=== PATIENT | female | born 1940 | race Caucasian/White ===

== ENCOUNTER → 2018-05-04 | Outpatient (CLI) | payer MEDICARE, OTHER ==
[~2018-05-04] MED LIST: AMIO200T PO; CELE200C PO; METO200T47 PO; METO25TA91 PO; Miscellaneous XX; SIMV20TA3 PO; WARF7.5T PO; ZOLP-413 PO
== END | disposition home or self-care (01) ==
LOC: CFH 14:21
DX: N95.9 Unspecified menopausal and perimenopausal disorder (principal); I25.10 Atherosclerotic heart disease of native coronary artery without angina pectoris; Z78.0 Asymptomatic menopausal state; Z87.891 Personal history of nicotine dependence
CPT/HCPCS: 77080; G0297

== ENCOUNTER → 2018-05-23 | Outpatient (CLI) | payer MEDICARE, OTHER ==
[~2018-05-23] MED LIST changes: +ATOR20TA37 PO; +DIGO125T PO; +LEVO50TA5 PO
[2018-05-23 11:48] LABS: MICROSCOPIC AUTO
[2018-05-23 11:49] LABS: BASOPHILS # (AUTO) 0.03 x10^3/uL (0-0.1); BASOPHILS % (AUTO) 1 % (0-1); EOSINOPHILS # (AUTO) 0.03 x10^3/uL (0-0.4); EOSINOPHILS % (AUTO) 1 % (1-7); LYMPHOCYTES # (AUTO) 1.59 x10^3/uL (1-3.4); LYMPHOCYTES % (AUTO) 30 % (22-44); MD NO; MEAN CORPUSCULAR HEMOGLOBIN 32.2 pg (27.0-34.8); MEAN CORPUSCULAR HGB CONC 33.9 g/dL (32.4-35.8); MEAN PLATELET VOLUME 7.6 fL (7.4-10.4); MONOCYTES # (AUTO) 0.71 x10^3/uL (0.2-0.8); MONOCYTES % (AUTO) 13 % (2-9); NEUTROPHILS # (AUTO) 3.01 x10^3/uL (1.8-6.8); NEUTROPHILS % (AUTO) 56 % (42-75); PLATELET COUNT 217 x10^3/uL (130-400); RED BLOOD COUNT 4.75 x10^6/uL (3.82-5.3)
[2018-05-23 11:56] LABS: INTERNATIONAL NORMALIZED RATIO 2.6 (0.93-1.1); PROTHROMBIN TIME 26.6 Seconds (9.6-11.5)
[2018-05-23 11:57] LABS: CULTURE INDICATED? YES
[2018-05-23 11:59] LABS: ALBUMIN 3.8 g/dL (3.4-5.0); ANION GAP 4 mmol/L (5-15); CALCIUM 9.7 mg/dL (8.5-10.1); CHLORIDE 109 mmol/L (98-107)
[2018-05-23 12:03] LABS: ALANINE AMINOTRANSFERASE 30 U/L (12-78); ALKALINE PHOSPHATASE 69 U/L (45-117); BILIRUBIN,TOTAL 1.4 mg/dL (0.2-1.0); CREATININE 1.03 mg/dL (0.55-1.02); TOTAL PROTEIN 6.9 g/dL (6.4-8.2)
== END | disposition home or self-care (01) ==
LOC: STAR 10:40
PROVIDERS: ATTEND Orthopaedic Surgery
DX: Z01.818 Encounter for other preprocedural examination (principal); M17.12 Unilateral primary osteoarthritis, left knee; I48.91 Unspecified atrial fibrillation
CPT/HCPCS: 36415; 80053; 81001; 85025; 85610; 85730; 87081; 87086; 93005

== ENCOUNTER 2018-06-27 09:53 | Inpatient (IN) | payer MEDICARE, OTHER ==
[~2018-06-27] VITALS: Ht 170.2 cm; Wt 84.8 kg
[2018-06-27] MEDS ORDERED: LACTATED RINGERS 1,000 ML IV SCH (10:49)
[2018-06-27 10:50] VITALS: BP 121/90
[2018-06-27] MEDS ORDERED: PLEASE ENTER HEIGHT AND WEIGHT MC SCH (11:00)
[2018-06-27] MEDS ORDERED: ONDANSETRON ODT 8 MG PO ONE (11:00)
[2018-06-27] MEDS ORDERED: GABAPENTIN 300 MG CAPSULE PO ONE (11:00)
[2018-06-27] MEDS ORDERED: ACETAMINOPHEN 500 MG TABLET PO ONE (11:00)
[2018-06-27 11:42] LABS: INTERNATIONAL NORMALIZED RATIO 1.08 (0.93-1.1); PROTHROMBIN TIME 11.3 Seconds (9.6-11.5)
[2018-06-27] MEDS ORDERED: TRANEXAMIC ACID 100 MG/ML, 10ML ONE (12:21)
[2018-06-27] MEDS ORDERED: KETOROLAC 60 MG/2 ML ONE (12:21)
[2018-06-27] MEDS ORDERED: EPINEPHRINE 1 MG/ML, 1ML ONE (12:22)
[2018-06-27] MEDS ORDERED: ROPIvacaine/PF 0.2%, 20 ML ONE (12:22)
[2018-06-27] MEDS ORDERED: SODIUM CHLORIDE 0.9% 100 ML ONE (12:22)
[2018-06-27] MEDS ORDERED: METOCLOPRAMIDE 5 MG/ML, 2ML IV PRN (12:30)
[2018-06-27] MEDS ORDERED: MORPHINE SULFATE 4 MG/ML, 1ML IVPush PRN (12:30)
[2018-06-27] MEDS ORDERED: MEPERIDINE/PF 25MG/0.5ML IVPush PRN (12:30)
[2018-06-27] MEDS ORDERED: OXYcodone 5 MG/5 ML ORAL.SOL UDC PO PRN (12:30)
[2018-06-27] MEDS ORDERED: LORazepam 2 MG/ML, 1ML IVPush PRN (12:30)
[2018-06-27] MEDS ORDERED: hydrALAzine 20 MG/ML, 1ML IV PRN (12:30)
[2018-06-27] MEDS ORDERED: LABETALOL 5MG/ML, 20ML IV PRN (12:30)
[2018-06-27] MEDS ORDERED: DEXAMETHASONE 4 MG/ML, 5ML ONE (12:40)
[2018-06-27] MEDS ORDERED: ONDANSETRON 2MG/ML, 2ML ONE (12:40)
[2018-06-27] MEDS ORDERED: CEFAZOLIN 1,000 MG ONE (12:40)
[2018-06-27] MEDS ORDERED: ZOLPIDEM 5MG TABLET PO PRN (13:00)
[2018-06-27] MEDS ORDERED: HYDROmorphone 1 MG/ML, 1ML IV PRN (13:00)
[2018-06-27] MEDS ORDERED: PROMETHAZINE 12.5 MG SUPP PR PRN (13:00)
[2018-06-27] MEDS ORDERED: MAGNESIUM HYDROXIDE 8%, 30ML UDC PO PRN (13:00)
[2018-06-27] MEDS ORDERED: ALUMINUM/MAG/SIMETHICONE 30 ML UDC PO PRN (13:00)
[2018-06-27] MEDS ORDERED: PROMETHAZINE 25 MG/ML, 1ML IM PRN (13:00)
[2018-06-27] MEDS ORDERED: BISACODYL 10 MG SUPP PR PRN (13:00)
[2018-06-27] MEDS ORDERED: DIPHENHYDRAMINE 50 MG CAPSULE PO PRN (13:00)
[2018-06-27] MEDS ORDERED: DIAZEPAM 5 MG TABLET PO PRN (13:00)
[2018-06-27] MEDS ORDERED: ONDANSETRON 4 MG TABLET PO PRN (13:00)
[2018-06-27] MEDS ORDERED: ONDANSETRON 2MG/ML, 2ML IV PRN (13:00)
[2018-06-27] MEDS ORDERED: ACETAMINOPHEN 650 MG/20.3 ML UDC PO SCH (13:00)
[2018-06-27] MEDS ORDERED: MIDAZOLAM 1 MG/ML, 2ML ONE (13:07)
[2018-06-27] MEDS ORDERED: FENTANYL PF 100 MCG/2ML ONE ×2 (13:07→14:07)
[2018-06-27] MEDS ORDERED: PROPOFOL 10 MG/ML, 20ML ONE (13:08)
[2018-06-27] MEDS ORDERED: SUCCINYLCHOLINE 20 MG/ML, 10ML ONE (13:09)
[2018-06-27] MEDS ORDERED: LIDOCAINE-MPF 2% ,5ML ONE (13:09)
[2018-06-27] MEDS ORDERED: TRANEXAMIC ACID 1,000 MG in SODIUM CHLORIDE 0.9% 100 ML IVPB ONE (14:00)
[2018-06-27] MEDS ORDERED: HYDROmorphone 1 MG/ML, 1ML ONE (14:07)
[2018-06-27] MEDS ORDERED: OXYcodone 5 MG/5 ML ORAL.SOL UDC ONE (14:08)
[2018-06-27] MEDS: HYDROmorphone 2 MG/ML, 1ML IVPush PRN ×2 (14:08→14:22)
[2018-06-27] MEDS: FENTANYL PF 100 MCG/2ML IV PRN ×2 (14:14→14:23)
[2018-06-27] MEDS: ACETAMINOPHEN 500 MG TABLET PO SCH ×3 (18:12→23:35)
[2018-06-27] MEDS: D5%-0.45% NACL 1,000 ML IV SCH (18:14)
[2018-06-27 20:06] VITALS: BP 108/57
[2018-06-27] MEDS: DIGOXIN 0.125 MG TABLET PO SCH (20:35)
[2018-06-27] MEDS: WARFARIN 3 MG TABLET PO-COUM SCH (20:36)
[2018-06-27] MEDS: CEFAZOLIN PMX 2GM/50ML 50 ML IVPB SCH (20:37)
[2018-06-27] MEDS: DOCUSATE 100 MG CAPSULE PO SCH (20:37)
[2018-06-27] MEDS: ATORVASTATIN 20 MG TABLET PO SCH (20:38)
[2018-06-27] MEDS: METOPROLOL SUCCINATE 25 MG TAB.ER.24H PO SCH (20:42)
[2018-06-28 00:10] VITALS: BP 106/65
[2018-06-28] MEDS: D5%-0.45% NACL 1,000 ML IV SCH ×3 (02:00→18:00)
[2018-06-28] MEDS: OXYcodone IR 5MG TABLET PO PRN ×2 (02:43→18:18)
[2018-06-28] MEDS: CEFAZOLIN PMX 2GM/50ML 50 ML IVPB SCH (04:02)
[2018-06-28 04:04] VITALS: BP 98/65
[2018-06-28] MEDS: ACETAMINOPHEN 500 MG TABLET PO SCH ×3 (05:24→17:34)
[2018-06-28] MEDS ORDERED: ENOXAPARIN 40 MG/0.4 ML SQ SCH (06:00)
[2018-06-28] MEDS ORDERED: DEXAMETHASONE 4 MG/ML, 1ML IVPush SCH (06:00)
[2018-06-28 08:45] VITALS: BP 110/73
[2018-06-28] MEDS ORDERED: OMNIPAQUE 350 MG/ML, 150 ML BOTTLE ONE (08:46)
[2018-06-28] MEDS ORDERED: DIGOXIN 0.125 MG TABLET PO SCH (09:00)
[2018-06-28] MEDS ORDERED: WARFARIN 3 MG TABLET PO-COUM SCH (09:00)
[2018-06-28] MEDS ORDERED: PAPAVERINE 30 MG/ML, 2ML ONE (10:03)
[2018-06-28] MEDS ORDERED: HEPARIN 1,000 UNITS/ML, 30ML ONE (10:03)
[2018-06-28] MEDS ORDERED: THROMBIN 20,000 UNIT VIAL TP ONE (10:03)
[2018-06-28] MEDS ORDERED: BACITRACIN 50,000 UNIT ONE (10:04)
[2018-06-28] MEDS ORDERED: MEPERIDINE/PF 25MG/0.5ML IVPush PRN (11:00)
[2018-06-28] MEDS ORDERED: OXYcodone 5 MG/5 ML ORAL.SOL UDC PO PRN (11:00)
[2018-06-28] MEDS ORDERED: ONDANSETRON 2MG/ML, 2ML IV PRN (11:00)
[2018-06-28] MEDS ORDERED: HYDROmorphone 2 MG/ML, 1ML IVPush PRN (11:00)
[2018-06-28] MEDS ORDERED: PAPAVERINE 30 MG/ML, 2ML IVPush ONE (12:38)
[2018-06-28] MEDS ORDERED: KETOROLAC 30 MG/1 ML IV SCH (13:00)
[2018-06-28] MEDS ORDERED: FENTANYL PF 100 MCG/2ML ONE (14:00)
[2018-06-28] MEDS: FENTANYL PF 100 MCG/2ML IV PRN ×3 (14:00→14:30)
[2018-06-28] MEDS ORDERED: OXYcodone 5 MG/5 ML ORAL.SOL UDC ONE (14:00)
[2018-06-28 15:10] VITALS: BP 107/62
[2018-06-28] MEDS ORDERED: LEVOTHYROXINE 25 MCG TABLET ONE (15:31)
[2018-06-28] MEDS: METOPROLOL SUCCINATE 25 MG TAB.ER.24H PO SCH ×2 (15:50→21:00)
[2018-06-28] MEDS: WARFARIN 3 MG TABLET PO-COUM SCH (15:52)
[2018-06-28] MEDS: DOCUSATE 100 MG CAPSULE PO SCH ×2 (15:52→20:43)
[2018-06-28] MEDS: MULTIVITAMINS/MINERALS TABLET PO SCH (15:53)
[2018-06-28] MEDS: LEVOTHYROXINE 50 MCG TABLET PO SCH (15:53)
[2018-06-28] MEDS ORDERED: HEPARIN 5,000 UNITS/ML, 1ML IV PRN (16:00)
[2018-06-28] MEDS ORDERED: HEPARIN 5,000 UNITS/ML, 1ML IV ONE (16:00)
[2018-06-28] MEDS: DIGOXIN 0.125 MG TABLET PO SCH (17:34)
[2018-06-28] MEDS: ATORVASTATIN 20 MG TABLET PO SCH (20:43)
[2018-06-28 21:03] VITALS: BP 100/62
[2018-06-29 00:15] VITALS: BP 103/74
[2018-06-29] MEDS: ACETAMINOPHEN 500 MG TABLET PO SCH ×4 (00:45→17:29)
[2018-06-29] MEDS: D5%-0.45% NACL 1,000 ML IV SCH ×3 (02:15→13:06)
[2018-06-29] MEDS: HEPARIN 25,000 UNITS/500ML PMX 500 ML IV PRN ×2 (03:28→22:40)
[2018-06-29 04:11] VITALS: BP 109/65
[2018-06-29 06:10] LABS: INTERNATIONAL NORMALIZED RATIO 1.42 (0.93-1.1); MEAN CORPUSCULAR HEMOGLOBIN 32.3 pg (27.0-34.8); MEAN CORPUSCULAR HGB CONC 34.3 g/dL (32.4-35.8); MEAN CORPUSCULAR VOLUME 94.2 fL (80-100); MEAN PLATELET VOLUME 7.9 fL (7.4-10.4); PLATELET COUNT 135 x10^3/uL (130-400); PROTHROMBIN TIME 14.7 Seconds (9.6-11.5); RED BLOOD COUNT 3.28 x10^6/uL (3.82-5.3); RED CELL DISTRIBUTION WIDTH 13.5 % (9.6-15.2)
[2018-06-29 06:13] LABS: ANION GAP 6 mmol/L (5-15); CALCIUM 8.6 mg/dL (8.5-10.1); CHLORIDE 109 mmol/L (98-107); CREATININE 1.07 mg/dL (0.55-1.02)
[2018-06-29 06:48] LABS: BASOPHILS # (AUTO) 0.01 x10^3/uL (0-0.1); BASOPHILS % (AUTO) 0 % (0-1); EOSINOPHILS % (AUTO) 0 % (1-7); LYMPHOCYTES # (AUTO) 1.57 x10^3/uL (1-3.4); LYMPHOCYTES % (AUTO) 13 % (22-44); MD SCAN; MONOCYTES % (AUTO) 15 % (2-9); NEUTROPHILS # (AUTO) 8.41 x10^3/uL (1.8-6.8); NEUTROPHILS % (AUTO) 72 % (42-75)
[2018-06-29] MEDS ORDERED: LEVOTHYROXINE 25 MCG TABLET ONE (08:15)
[2018-06-29 08:18] VITALS: BP 94/54
[2018-06-29] MEDS: MULTIVITAMINS/MINERALS TABLET PO SCH (08:33)
[2018-06-29] MEDS: LEVOTHYROXINE 50 MCG TABLET PO SCH (08:33)
[2018-06-29] MEDS: SENNA/DOCUSATE TABLET PO PRN (08:35)
[2018-06-29] MEDS: WARFARIN 3 MG TABLET PO-COUM SCH (08:38)
[2018-06-29] MEDS: DOCUSATE 100 MG CAPSULE PO SCH ×2 (08:38→22:03)
[2018-06-29] MEDS: METOPROLOL SUCCINATE 25 MG TAB.ER.24H PO SCH ×2 (11:35→22:02)
[2018-06-29 15:14] VITALS: BP 101/49
[2018-06-29] MEDS: DIGOXIN 0.125 MG TABLET PO SCH (17:30)
[2018-06-29 20:03] VITALS: BP 94/57
[2018-06-29] MEDS: ATORVASTATIN 20 MG TABLET PO SCH (22:02)
[2018-06-30] MEDS: ACETAMINOPHEN 500 MG TABLET PO SCH ×4 (00:30→17:05)
[2018-06-30] MEDS: D5%-0.45% NACL 1,000 ML IV SCH ×2 (01:49→07:32)
[2018-06-30 02:44] VITALS: BP 132/67
[2018-06-30] MEDS: LEVOTHYROXINE 50 MCG TABLET PO SCH ×2 (06:00→07:19)
[2018-06-30 06:02] LABS: BASOPHILS # (AUTO) 0.02 x10^3/uL (0-0.1); BASOPHILS % (AUTO) 0 % (0-1); EOSINOPHILS # (AUTO) 0.08 x10^3/uL (0-0.4); EOSINOPHILS % (AUTO) 1 % (1-7); LYMPHOCYTES # (AUTO) 1.74 x10^3/uL (1-3.4); LYMPHOCYTES % (AUTO) 18 % (22-44); MD NO; MEAN CORPUSCULAR HEMOGLOBIN 32.4 pg (27.0-34.8); MEAN CORPUSCULAR VOLUME 95.2 fL (80-100); MEAN PLATELET VOLUME 7.6 fL (7.4-10.4); MONOCYTES # (AUTO) 1.26 x10^3/uL (0.2-0.8); MONOCYTES % (AUTO) 13 % (2-9); NEUTROPHILS # (AUTO) 6.35 x10^3/uL (1.8-6.8); NEUTROPHILS % (AUTO) 67 % (42-75); PLATELET COUNT 124 x10^3/uL (130-400); RED BLOOD COUNT 2.66 x10^6/uL (3.82-5.3); RED CELL DISTRIBUTION WIDTH 13.6 % (9.6-15.2)
[2018-06-30 06:13] LABS: ANION GAP 6 mmol/L (5-15); CALCIUM 8.1 mg/dL (8.5-10.1); CHLORIDE 107 mmol/L (98-107); CREATININE 0.95 mg/dL (0.55-1.02)
[2018-06-30] MEDS ORDERED: LEVOTHYROXINE 25 MCG TABLET ONE (06:23)
[2018-06-30 08:25] LABS: INTERNATIONAL NORMALIZED RATIO 1.5 (0.93-1.1); PROTHROMBIN TIME 15.5 Seconds (9.6-11.5)
[2018-06-30 09:25] VITALS: BP 92/65
[2018-06-30] MEDS: MULTIVITAMINS/MINERALS TABLET PO SCH (09:46)
[2018-06-30] MEDS: DOCUSATE 100 MG CAPSULE PO SCH ×2 (09:46→19:48)
[2018-06-30] MEDS: SENNA/DOCUSATE TABLET PO PRN (09:47)
[2018-06-30] MEDS: WARFARIN 3 MG TABLET PO-COUM SCH (09:47)
[2018-06-30] MEDS: METOPROLOL SUCCINATE 25 MG TAB.ER.24H PO SCH (11:41)
[2018-06-30 15:45] VITALS: BP 110/59
[2018-06-30] MEDS: DIGOXIN 0.125 MG TABLET PO SCH (17:05)
[2018-06-30] MEDS: HEPARIN 25,000 UNITS/500ML PMX 500 ML IV PRN (17:09)
[2018-06-30 19:21] VITALS: BP 93/68
[2018-06-30] MEDS: ATORVASTATIN 20 MG TABLET PO SCH (19:48)
[2018-07-01] VITALS (8 sets, daily range): BP systolic 88–110; BP diastolic 50–77
[2018-07-01] MEDS: ACETAMINOPHEN 500 MG TABLET PO SCH ×5 (00:30→22:16)
[2018-07-01] MEDS: D5%-0.45% NACL 1,000 ML IV SCH ×3 (02:00→18:00)
[2018-07-01 03:34] LABS: MEAN CORPUSCULAR HGB CONC 32.8 g/dL (32.4-35.8); MEAN CORPUSCULAR VOLUME 94.7 fL (80-100); MEAN PLATELET VOLUME 8.2 fL (7.4-10.4); PLATELET COUNT 149 x10^3/uL (130-400); RED BLOOD COUNT 2.19 x10^6/uL (3.82-5.3); RED CELL DISTRIBUTION WIDTH 13.7 % (9.6-15.2)
[2018-07-01 03:35] LABS: ANION GAP 3 mmol/L (5-15); CALCIUM 8.1 mg/dL (8.5-10.1); CHLORIDE 105 mmol/L (98-107); CREATININE 0.86 mg/dL (0.55-1.02)
[2018-07-01 03:39] LABS: INTERNATIONAL NORMALIZED RATIO 1.76 (0.93-1.1); PROTHROMBIN TIME 18.1 Seconds (9.6-11.5)
[2018-07-01 03:46] LABS: BASOPHILS # (AUTO) 0.04 x10^3/uL (0-0.1); BASOPHILS % (AUTO) 0 % (0-1); EOSINOPHILS # (AUTO) 0.05 x10^3/uL (0-0.4); EOSINOPHILS % (AUTO) 1 % (1-7); LYMPHOCYTES # (AUTO) 2.19 x10^3/uL (1-3.4); LYMPHOCYTES % (AUTO) 22 % (22-44); MD MORPH REVIEW ONLY; MONOCYTES # (AUTO) 1.25 x10^3/uL (0.2-0.8); MONOCYTES % (AUTO) 13 % (2-9); NEUTROPHILS # (AUTO) 6.34 x10^3/uL (1.8-6.8); NEUTROPHILS % (AUTO) 64 % (42-75)
[2018-07-01 03:47] LABS: ANISOCYTOSIS 1+; MICROCYTOSIS 1+; OVALOCYTES 1+; POLYCHROMASIA 1+
[2018-07-01 03:49] LABS: <PLATELET ESTIMATE> ADEQUATE; <PLT MORPHOLOGY> NORMAL PLT MORPH
[2018-07-01] MEDS: MULTIVITAMINS/MINERALS TABLET PO SCH (08:46)
[2018-07-01] MEDS: DOCUSATE 100 MG CAPSULE PO SCH ×2 (08:46→22:16)
[2018-07-01] MEDS: LEVOTHYROXINE 50 MCG TABLET PO SCH (08:46)
[2018-07-01] MEDS: METOPROLOL SUCCINATE 25 MG TAB.ER.24H PO SCH ×2 (08:47→22:16)
[2018-07-01] MEDS: WARFARIN 3 MG TABLET PO-COUM SCH (10:33)
[2018-07-01] MEDS: DIGOXIN 0.125 MG TABLET PO SCH (17:33)
[2018-07-01] MEDS: ATORVASTATIN 20 MG TABLET PO SCH (22:16)
[2018-07-02] MEDS: D5%-0.45% NACL 1,000 ML IV SCH ×3 (02:00→16:32)
[2018-07-02 03:00] VITALS: BP 111/62
[2018-07-02] MEDS: ACETAMINOPHEN 500 MG TABLET PO SCH ×4 (03:00→19:59)
[2018-07-02 05:35] LABS: ANION GAP 2 mmol/L (5-15); CHLORIDE 107 mmol/L (98-107)
[2018-07-02 05:36] LABS: CREATININE 0.88 mg/dL (0.55-1.02)
[2018-07-02 05:44] LABS: MEAN CORPUSCULAR HEMOGLOBIN 32.4 pg (27.0-34.8); MEAN CORPUSCULAR HGB CONC 34.3 g/dL (32.4-35.8); MEAN CORPUSCULAR VOLUME 94.6 fL (80-100); MEAN PLATELET VOLUME 7.6 fL (7.4-10.4); PLATELET COUNT 166 x10^3/uL (130-400); RED BLOOD COUNT 2.46 x10^6/uL (3.82-5.3); RED CELL DISTRIBUTION WIDTH 13.4 % (9.6-15.2)
[2018-07-02 06:02] LABS: MD YES
[2018-07-02 06:03] LABS: BAND#(MANUAL) 0.09 x10^3/uL; BANDS%(MANUAL) 1 % (0-7); EOS#(MANUAL) 0.09 x10^3/uL (0.0-0.4); EOS% (MANUAL) 1 % (1-7); LYMPH#(MANUAL) 1.96 x10^3/uL (1-3.4); LYMPHS% (MANUAL) 22 % (22-44); MONOS#(MANUAL) 1.16 x10^3/uL (0.3-2.7); MONOS% (MANUAL) 13 % (2-9); NRBC % (MANUAL) 1 % (0-1); SEG#(MANUAL) 5.61 x10^3/uL (1.8-6.8); SEGS% (MANUAL) 63 % (42-75)
[2018-07-02 06:04] LABS: ANISOCYTOSIS 1+; MICROCYTOSIS 1+; POLYCHROMASIA 1+
[2018-07-02 06:05] LABS: <PLATELET ESTIMATE> ADEQUATE; <PLT MORPHOLOGY> NORMAL PLT MORPH; OVALOCYTES 1+
[2018-07-02 09:51] VITALS: BP 94/59
[2018-07-02] MEDS ORDERED: LEVOTHYROXINE 25 MCG TABLET ONE (10:07)
[2018-07-02] MEDS: METOPROLOL SUCCINATE 25 MG TAB.ER.24H PO SCH (10:22)
[2018-07-02] MEDS: DOCUSATE 100 MG CAPSULE PO SCH ×2 (10:23→19:57)
[2018-07-02] MEDS: MULTIVITAMINS/MINERALS TABLET PO SCH (10:23)
[2018-07-02 11:07] LABS: INTERNATIONAL NORMALIZED RATIO 1.86 (0.93-1.1); PROTHROMBIN TIME 19.1 Seconds (9.6-11.5)
[2018-07-02] MEDS: WARFARIN 3 MG TABLET PO-COUM SCH (11:28)
[2018-07-02] MEDS: LEVOTHYROXINE 50 MCG TABLET PO SCH (11:29)
[2018-07-02 15:09] VITALS: BP 98/58
[2018-07-02] MEDS: DIGOXIN 0.125 MG TABLET PO SCH (16:03)
[2018-07-02 18:44] VITALS: BP 102/68
[2018-07-02] MEDS ORDERED: METOPROLOL SUCCINATE 25 MG TAB.ER.24H ONE (19:49)
[2018-07-02] MEDS: ATORVASTATIN 20 MG TABLET PO SCH (19:59)
[2018-07-02] MEDS: METOPROLOL SUCCINATE 50 MG TAB.ER.24H PO SCH (20:00)
[2018-07-03] MEDS: D5%-0.45% NACL 1,000 ML IV SCH ×4 (01:14→21:00)
[2018-07-03] MEDS: ACETAMINOPHEN 500 MG TABLET PO SCH ×4 (02:24→20:02)
[2018-07-03 03:55] VITALS: BP 98/63
[2018-07-03 04:04] VITALS: BP 98/63
[2018-07-03 05:27] LABS: MEAN CORPUSCULAR HEMOGLOBIN 32.9 pg (27.0-34.8); MEAN CORPUSCULAR HGB CONC 34.1 g/dL (32.4-35.8); MEAN CORPUSCULAR VOLUME 96.7 fL (80-100); MEAN PLATELET VOLUME 7.6 fL (7.4-10.4); PLATELET COUNT 155 x10^3/uL (130-400); RED BLOOD COUNT 2.26 x10^6/uL (3.82-5.3); RED CELL DISTRIBUTION WIDTH 13.5 % (9.6-15.2)
[2018-07-03] MEDS: LEVOTHYROXINE 50 MCG TABLET PO SCH (05:32)
[2018-07-03 05:36] LABS: CHLORIDE 109 mmol/L (98-107)
[2018-07-03 05:40] LABS: ANION GAP 5 mmol/L (5-15); CALCIUM 8.2 mg/dL (8.5-10.1); CREATININE 0.86 mg/dL (0.55-1.02)
[2018-07-03 05:53] LABS: BASOPHILS # (AUTO) 0.01 x10^3/uL (0-0.1); BASOPHILS % (AUTO) 0 % (0-1); EOSINOPHILS # (AUTO) 0.06 x10^3/uL (0-0.4); EOSINOPHILS % (AUTO) 1 % (1-7); LYMPHOCYTES % (AUTO) 19 % (22-44); MD SCAN; MONOCYTES # (AUTO) 1.28 x10^3/uL (0.2-0.8); MONOCYTES % (AUTO) 15 % (2-9); NEUTROPHILS # (AUTO) 5.71 x10^3/uL (1.8-6.8); NEUTROPHILS % (AUTO) 65 % (42-75)
[2018-07-03 07:14] VITALS: BP 102/55
[2018-07-03] MEDS ORDERED: METOPROLOL SUCCINATE 25 MG TAB.ER.24H ONE ×2 (08:26→19:59)
[2018-07-03] MEDS: METOPROLOL SUCCINATE 50 MG TAB.ER.24H PO SCH ×2 (08:28→20:03)
[2018-07-03] MEDS: WARFARIN 3 MG TABLET PO-COUM SCH (08:29)
[2018-07-03] MEDS: MULTIVITAMINS/MINERALS TABLET PO SCH (08:29)
[2018-07-03] MEDS: DOCUSATE 100 MG CAPSULE PO SCH ×2 (08:30→20:02)
[2018-07-03 09:11] LABS: INTERNATIONAL NORMALIZED RATIO 1.91 (0.93-1.1); PROTHROMBIN TIME 19.6 Seconds (9.6-11.5)
[2018-07-03 13:21] VITALS: BP 95/58
[2018-07-03] MEDS: DIGOXIN 0.125 MG TABLET PO SCH (17:11)
[2018-07-03 19:37] VITALS: BP 93/54
[2018-07-03] MEDS: ATORVASTATIN 20 MG TABLET PO SCH (20:02)
[2018-07-04 02:06] VITALS: BP_SYST 98
[2018-07-04] MEDS: ACETAMINOPHEN 500 MG TABLET PO SCH ×4 (02:30→21:58)
[2018-07-04] MEDS: LEVOTHYROXINE 50 MCG TABLET PO SCH (05:42)
[2018-07-04] MEDS ORDERED: METOPROLOL SUCCINATE 25 MG TAB.ER.24H ONE (07:21)
[2018-07-04 07:22] VITALS: BP 89/46
[2018-07-04 07:29] LABS: MEAN CORPUSCULAR HEMOGLOBIN 32.5 pg (27.0-34.8); MEAN CORPUSCULAR HGB CONC 33.2 g/dL (32.4-35.8); MEAN CORPUSCULAR VOLUME 98.1 fL (80-100); MEAN PLATELET VOLUME 7.6 fL (7.4-10.4); PLATELET COUNT 173 x10^3/uL (130-400); RED BLOOD COUNT 2.28 x10^6/uL (3.82-5.3); RED CELL DISTRIBUTION WIDTH 13.9 % (9.6-15.2)
[2018-07-04 08:29] LABS: INTERNATIONAL NORMALIZED RATIO 2.06 (0.93-1.1)
[2018-07-04 08:45] LABS: NEUTROPHILS % (AUTO) 63 % (42-75)
[2018-07-04 08:46] LABS: BASOPHILS % (AUTO) 0 % (0-1); EOSINOPHILS % (AUTO) 3 % (1-7); LYMPHOCYTES # (AUTO) 1.67 x10^3/uL (1-3.4); LYMPHOCYTES % (AUTO) 20 % (22-44); MONOCYTES # (AUTO) 1.11 x10^3/uL (0.2-0.8); MONOCYTES % (AUTO) 14 % (2-9); NEUTROPHILS # (AUTO) 5.12 x10^3/uL (1.8-6.8)
[2018-07-04 08:47] LABS: EOSINOPHILS # (AUTO) 0.27 x10^3/uL (0-0.4); MD NO
[2018-07-04] MEDS: METOPROLOL SUCCINATE 50 MG TAB.ER.24H PO SCH ×2 (08:56→20:29)
[2018-07-04] MEDS: DOCUSATE 100 MG CAPSULE PO SCH ×2 (08:56→20:29)
[2018-07-04] MEDS: WARFARIN 3 MG TABLET PO-COUM SCH (08:56)
[2018-07-04] MEDS: MULTIVITAMINS/MINERALS TABLET PO SCH (08:56)
[2018-07-04] MEDS: D5%-0.45% NACL 1,000 ML IV SCH ×2 (08:57→17:06)
[2018-07-04 13:46] VITALS: BP 93/59
[2018-07-04] MEDS: DIGOXIN 0.125 MG TABLET PO SCH (17:04)
[2018-07-04 19:43] VITALS: BP 97/62
[2018-07-04] MEDS: ATORVASTATIN 20 MG TABLET PO SCH (20:29)
[2018-07-05] MEDS: D5%-0.45% NACL 1,000 ML IV SCH ×3 (02:00→15:33)
[2018-07-05 02:05] VITALS: BP 97/57
[2018-07-05] MEDS: ACETAMINOPHEN 500 MG TABLET PO SCH ×3 (03:31→15:32)
[2018-07-05 06:18] LABS: MEAN CORPUSCULAR HEMOGLOBIN 32.9 pg (27.0-34.8); MEAN CORPUSCULAR HGB CONC 33.5 g/dL (32.4-35.8); MEAN CORPUSCULAR VOLUME 98.3 fL (80-100); MEAN PLATELET VOLUME 7.7 fL (7.4-10.4); PLATELET COUNT 220 x10^3/uL (130-400); RED BLOOD COUNT 2.34 x10^6/uL (3.82-5.3); RED CELL DISTRIBUTION WIDTH 14.5 % (9.6-15.2)
[2018-07-05 06:27] LABS: ANION GAP 5 mmol/L (5-15); CALCIUM 8.3 mg/dL (8.5-10.1); CHLORIDE 111 mmol/L (98-107); CREATININE 0.79 mg/dL (0.55-1.02)
[2018-07-05 06:38] LABS: BASOPHILS # (AUTO) 0.03 x10^3/uL (0-0.1); BASOPHILS % (AUTO) 0 % (0-1); EOSINOPHILS # (AUTO) 0.09 x10^3/uL (0-0.4); EOSINOPHILS % (AUTO) 1 % (1-7); LYMPHOCYTES # (AUTO) 1.48 x10^3/uL (1-3.4); LYMPHOCYTES % (AUTO) 18 % (22-44); MD SCAN; MONOCYTES # (AUTO) 0.99 x10^3/uL (0.2-0.8); MONOCYTES % (AUTO) 12 % (2-9); NEUTROPHILS # (AUTO) 5.54 x10^3/uL (1.8-6.8); NEUTROPHILS % (AUTO) 68 % (42-75)
[2018-07-05 07:28] VITALS: BP 88/55
[2018-07-05 08:08] LABS: INTERNATIONAL NORMALIZED RATIO 2.07 (0.93-1.1); PROTHROMBIN TIME 21.1 Seconds (9.6-11.5)
[2018-07-05] MEDS: DOCUSATE 100 MG CAPSULE PO SCH (08:29)
[2018-07-05] MEDS: WARFARIN 3 MG TABLET PO-COUM SCH (08:29)
[2018-07-05] MEDS: METOPROLOL SUCCINATE 50 MG TAB.ER.24H PO SCH (08:29)
[2018-07-05] MEDS: MULTIVITAMINS/MINERALS TABLET PO SCH (08:29)
[2018-07-05] MEDS ORDERED: LEVOTHYROXINE 25 MCG TABLET ONE (08:30)
[2018-07-05] MEDS: LEVOTHYROXINE 50 MCG TABLET PO SCH (08:32)
[2018-07-05 14:18] VITALS: BP 91/50
[2018-07-05] MEDS ORDERED: SENN-177 PO (14:48)
[2018-07-05] MEDS ORDERED: METO-93 PO (14:48)
[2018-07-05] MEDS ORDERED: ACET500T71 PO (14:48)
[2018-07-05] MEDS ORDERED: WARF3TAB PO-COUM (14:48)
[2018-07-05] MEDS ORDERED: MULT-484 PO (14:48)
[2018-07-05] MEDS ORDERED: BISA10SU54 PR (14:48)
[2018-07-05] MEDS: DIGOXIN 0.125 MG TABLET PO SCH (15:33)
== END 2018-07-05 19:07 | DRG 469 ==
LOC: OUT 09:53 → ORIP 12:32 → 4NOR 15:13
PROVIDERS: ADMIT Orthopaedic Surgery; ATTEND Orthopaedic Surgery
PROC: 3E0T3BZ Introduction of Anesthetic Agent into Peripheral Nerves and Plexi, Percutaneous Approach (ICD-10-PCS; 2018-06-27)
PROC: 0SRD0J9 Replacement of Left Knee Joint with Synthetic Substitute, Cemented, Open Approach (ICD-10-PCS; principal; 2018-06-27 14:30)
PROC: 04CK0ZZ Extirpation of Matter from Right Femoral Artery, Open Approach (ICD-10-PCS; 2018-06-28)
PROC: 04CM0ZZ Extirpation of Matter from Right Popliteal Artery, Open Approach (ICD-10-PCS; 2018-06-28)
PROC: 04CP0ZZ Extirpation of Matter from Right Anterior Tibial Artery, Open Approach (ICD-10-PCS; 2018-06-28)
PROC: 04CR0ZZ Extirpation of Matter from Right Posterior Tibial Artery, Open Approach (ICD-10-PCS; 2018-06-28)
PROC: 30233N1 Transfusion of Nonautologous Red Blood Cells into Peripheral Vein, Percutaneous Approach (ICD-10-PCS; 2018-07-01)
DX: M17.12 Unilateral primary osteoarthritis, left knee (principal); N17.0 Acute kidney failure with tubular necrosis; D68.59 Other primary thrombophilia; I74.3 Embolism and thrombosis of arteries of the lower extremities; D62 Acute posthemorrhagic anemia; I99.8 Other disorder of circulatory system; E03.9 Hypothyroidism, unspecified; E78.5 Hyperlipidemia, unspecified; I10 Essential (primary) hypertension; I48.91 Unspecified atrial fibrillation; K63.9 Disease of intestine, unspecified; M21.162 Varus deformity, not elsewhere classified, left knee; Z79.01 Long term (current) use of anticoagulants; Z87.891 Personal history of nicotine dependence
CPT/HCPCS: 36415; 80048; 85014; 85018; 85025; 85520; 85610; 85730; 86850; 86900; 86923; C1713; C1729; G0378; J0171; J0690; J1100; J1170; J1644; J1650; J1885; J2250; J2405; J2704; J2795; J3010; J3490; Q0162; Q9967; C1757; C1776; J0330; J2440; J7120; P9016

== ENCOUNTER 2018-09-11 23:31 | Emergency (ER) | payer MEDICARE, OTHER ==
[~2018-09-11] VITALS: Ht 170.2 cm; Wt 82.0 kg
[~2018-09-11 23:31] MED LIST changes: +ACET500T71 PO; +BISA10SU54 PR; +METO-93 PO; +MULT-484 PO; +SENN-177 PO; +WARF3TAB PO-COUM
[2018-09-11] MEDS ORDERED: DIPHENHYDRAMINE 50 MG/ML, 1ML ONE (23:56)
[2018-09-11] MEDS ORDERED: FAMOTIDINE 20 MG/2 ML ONE (23:57)
[2018-09-12] MEDS ORDERED: DIPHENHYDRAMINE 50 MG/ML, 1ML IVPush ONE
[2018-09-12] MEDS ORDERED: FAMOTIDINE 20 MG/2 ML IVP ONE
[2018-09-12 00:05] LABS: BASOPHILS # (AUTO) 0.02 x10^3/uL (0-0.1); BASOPHILS % (AUTO) 0 % (0-1); EOSINOPHILS # (AUTO) 0.02 x10^3/uL (0-0.4); EOSINOPHILS % (AUTO) 0 % (1-7); LYMPHOCYTES # (AUTO) 1.68 x10^3/uL (1-3.4); LYMPHOCYTES % (AUTO) 27 % (22-44); MD NO; MEAN CORPUSCULAR HEMOGLOBIN 29.2 pg (27.0-34.8); MEAN CORPUSCULAR HGB CONC 32.2 g/dL (32.4-35.8); MEAN CORPUSCULAR VOLUME 90.5 fL (80-100); MEAN PLATELET VOLUME 7.5 fL (7.4-10.4); MONOCYTES # (AUTO) 0.63 x10^3/uL (0.2-0.8); MONOCYTES % (AUTO) 10 % (2-9); NEUTROPHILS # (AUTO) 3.87 x10^3/uL (1.8-6.8); NEUTROPHILS % (AUTO) 62 % (42-75); PLATELET COUNT 229 x10^3/uL (130-400); RED BLOOD COUNT 4.97 x10^6/uL (3.82-5.3); RED CELL DISTRIBUTION WIDTH 15.7 % (9.6-15.2)
[2018-09-12 00:14] LABS: INTERNATIONAL NORMALIZED RATIO 3.88 (0.93-1.1); PROTHROMBIN TIME 38.7 Seconds (9.6-11.5)
[2018-09-12 00:24] VITALS: BP 124/51
[2018-09-12] MEDS ORDERED: METOPROLOL 1 MG/ML, 5ML IVPush ONE (00:30)
[2018-09-12 00:41] LABS: ALANINE AMINOTRANSFERASE 28 U/L (12-78); ALBUMIN 3.8 g/dL (3.4-5.0); ANION GAP 10 mmol/L (5-15); CALCIUM 9.2 mg/dL (8.5-10.1); CHLORIDE 107 mmol/L (98-107); CREATININE 1.11 mg/dL (0.55-1.02)
[2018-09-12 00:43] LABS: ALKALINE PHOSPHATASE 92 U/L (45-117); BILIRUBIN,TOTAL 0.3 mg/dL (0.2-1.0); TOTAL PROTEIN 7.1 g/dL (6.4-8.2)
== END 2018-09-12 01:16 | disposition home or self-care (01) ==
LOC: ED 09-12 00:32
DX: L50.0 Allergic urticaria (principal); I48.91 Unspecified atrial fibrillation; R79.1 Abnormal coagulation profile; Z86.718 Personal history of other venous thrombosis and embolism
CPT/HCPCS: 36415; 80053; 85025; 85610; 93005; 96374; 96375; 99284; J1200; J3490

== ENCOUNTER → 2018-10-05 | Outpatient (CLI) | payer MEDICARE, OTHER | END | disposition home or self-care (01) | LOC: WOUND 08:46 | PROVIDERS: ATTEND Internal Medicine | DX: T81.31XA Disruption of external operation (surgical) wound, not elsewhere classified, initial encounter (principal); S81.801A Unspecified open wound, right lower leg, initial encounter; I73.9 Peripheral vascular disease, unspecified; I77.9 Disorder of arteries and arterioles, unspecified; D68.59 Other primary thrombophilia; I48.91 Unspecified atrial fibrillation; E78.5 Hyperlipidemia, unspecified; Z86.718 Personal history of other venous thrombosis and embolism; Z96.652 Presence of left artificial knee joint; X58.XXXA Exposure to other specified factors, initial encounter; Y93.89 Activity, other specified; Y92.89 Other specified places as the place of occurrence of the external cause; Y99.8 Other external cause status; Y83.8 Other surgical procedures as the cause of abnormal reaction of the patient, or of later complication, without mention of misadventure at the time of the procedure | CPT/HCPCS: 97597; G0463 ==

== ENCOUNTER → 2018-10-12 | Outpatient (CLI) | payer MEDICARE, OTHER | END | disposition home or self-care (01) | LOC: WOUND 09:30 | PROVIDERS: ATTEND Internal Medicine | DX: T81.31XD Disruption of external operation (surgical) wound, not elsewhere classified, subsequent encounter (principal); S81.801D Unspecified open wound, right lower leg, subsequent encounter; I73.9 Peripheral vascular disease, unspecified; I77.9 Disorder of arteries and arterioles, unspecified; D68.59 Other primary thrombophilia; I48.91 Unspecified atrial fibrillation; E78.5 Hyperlipidemia, unspecified; Z86.718 Personal history of other venous thrombosis and embolism; Z96.652 Presence of left artificial knee joint; X58.XXXD Exposure to other specified factors, subsequent encounter; Y83.8 Other surgical procedures as the cause of abnormal reaction of the patient, or of later complication, without mention of misadventure at the time of the procedure | CPT/HCPCS: 97597 ==

== ENCOUNTER → 2018-10-19 | Outpatient (CLI) | payer MEDICARE, OTHER | END | disposition home or self-care (01) | LOC: WOUND 09:27 | PROVIDERS: ATTEND Internal Medicine | DX: T81.31XD Disruption of external operation (surgical) wound, not elsewhere classified, subsequent encounter (principal); S81.801D Unspecified open wound, right lower leg, subsequent encounter; I73.9 Peripheral vascular disease, unspecified; I77.9 Disorder of arteries and arterioles, unspecified; D68.59 Other primary thrombophilia; I48.91 Unspecified atrial fibrillation; E78.5 Hyperlipidemia, unspecified; Z86.718 Personal history of other venous thrombosis and embolism; Z96.652 Presence of left artificial knee joint; X58.XXXD Exposure to other specified factors, subsequent encounter; Y83.8 Other surgical procedures as the cause of abnormal reaction of the patient, or of later complication, without mention of misadventure at the time of the procedure | CPT/HCPCS: 97597 ==

== ENCOUNTER 2018-10-26 09:32 | Outpatient (CLI) | payer MEDICARE, OTHER | END 2018-10-26 23:59 | disposition home or self-care (01) | LOC: WOUND 09:32 | PROVIDERS: ATTEND Internal Medicine | DX: T81.31XD Disruption of external operation (surgical) wound, not elsewhere classified, subsequent encounter (principal); S81.801D Unspecified open wound, right lower leg, subsequent encounter; I73.9 Peripheral vascular disease, unspecified; I77.9 Disorder of arteries and arterioles, unspecified; D68.59 Other primary thrombophilia; I48.91 Unspecified atrial fibrillation; E78.5 Hyperlipidemia, unspecified; Z86.718 Personal history of other venous thrombosis and embolism; Z96.652 Presence of left artificial knee joint; Z79.01 Long term (current) use of anticoagulants; X58.XXXD Exposure to other specified factors, subsequent encounter; Y83.8 Other surgical procedures as the cause of abnormal reaction of the patient, or of later complication, without mention of misadventure at the time of the procedure | CPT/HCPCS: 97597 ==

== ENCOUNTER → 2018-11-02 | Outpatient (CLI) | payer MEDICARE, OTHER | END | disposition home or self-care (01) | LOC: WOUND 09:30 | PROVIDERS: ATTEND Internal Medicine | DX: T81.31XD Disruption of external operation (surgical) wound, not elsewhere classified, subsequent encounter (principal); S81.801D Unspecified open wound, right lower leg, subsequent encounter; I73.9 Peripheral vascular disease, unspecified; I77.9 Disorder of arteries and arterioles, unspecified; D68.59 Other primary thrombophilia; I48.91 Unspecified atrial fibrillation; E78.5 Hyperlipidemia, unspecified; Z86.718 Personal history of other venous thrombosis and embolism; Z96.652 Presence of left artificial knee joint; X58.XXXD Exposure to other specified factors, subsequent encounter; Y83.8 Other surgical procedures as the cause of abnormal reaction of the patient, or of later complication, without mention of misadventure at the time of the procedure | CPT/HCPCS: 97597 ==

== ENCOUNTER 2018-11-09 09:53 | Outpatient (CLI) | payer MEDICARE, OTHER | END 2018-11-09 23:59 | disposition home or self-care (01) | LOC: WOUND 09:53 | PROVIDERS: ATTEND Internal Medicine | DX: T81.31XD Disruption of external operation (surgical) wound, not elsewhere classified, subsequent encounter (principal); S81.801D Unspecified open wound, right lower leg, subsequent encounter; I73.9 Peripheral vascular disease, unspecified; I77.9 Disorder of arteries and arterioles, unspecified; D68.59 Other primary thrombophilia; I48.91 Unspecified atrial fibrillation; E78.5 Hyperlipidemia, unspecified; Z86.718 Personal history of other venous thrombosis and embolism; Z96.652 Presence of left artificial knee joint; X58.XXXD Exposure to other specified factors, subsequent encounter; Y83.8 Other surgical procedures as the cause of abnormal reaction of the patient, or of later complication, without mention of misadventure at the time of the procedure | CPT/HCPCS: 97597 ==

== ENCOUNTER → 2019-03-13 | Outpatient (CLI) | payer MEDICARE, OTHER ==
[~2019-03-13] MED LIST changes: +ACET500T64 PO; -ACET500T71 PO
== END | disposition home or self-care (01) ==
LOC: CVU 08:45
PROVIDERS: ATTEND Internal Medicine Cardiovascular Disease
DX: I08.8 Other rheumatic multiple valve diseases (principal); I48.91 Unspecified atrial fibrillation; R60.9 Edema, unspecified; Z79.01 Long term (current) use of anticoagulants; Z85.51 Personal history of malignant neoplasm of bladder; Z92.21 Personal history of antineoplastic chemotherapy; Z87.891 Personal history of nicotine dependence
CPT/HCPCS: 93306

== ENCOUNTER → 2020-05-22 | Outpatient (CLI) | payer MEDICARE, OTHER ==
[~2020-05-22] MED LIST changes: -DIGO125T PO; +DIGO125T85 PO; +REGADENOSON 0.4 MG/5 ML SYRINGE ONE; +SIMV20TA19 PO; -SIMV20TA3 PO
== END | disposition home or self-care (01) ==
LOC: CFH 08:05
PROVIDERS: ATTEND Internal Medicine Cardiovascular Disease
DX: Z01.810 Encounter for preprocedural cardiovascular examination (principal); R07.89 Other chest pain
CPT/HCPCS: 78452; 93017; A9502; J2785

== ENCOUNTER → 2020-05-31 | Outpatient (CLI) | payer MEDICARE, OTHER ==
[~2020-05-31] MED LIST changes: -REGADENOSON 0.4 MG/5 ML SYRINGE ONE
== END | disposition home or self-care (01) ==
LOC: CFH 07:29
PROVIDERS: ATTEND Internal Medicine Cardiovascular Disease
DX: Z01.810 Encounter for preprocedural cardiovascular examination (principal); I08.8 Other rheumatic multiple valve diseases; R07.89 Other chest pain
CPT/HCPCS: 93306

== ENCOUNTER 2020-07-25 11:17 | Outpatient (CLI) | payer MEDICARE, OTHER ==
[2020-07-25] MEDS ORDERED: CELE100C PO (12:07)
[2020-07-25] MEDS ORDERED: VIT1CAPS42 PO (12:07)
[2020-07-25] MEDS ORDERED: WARF4TAB65 PO (12:07)
[2020-07-25] MEDS ORDERED: METO-99 PO (12:07)
[2020-07-25 12:46] LABS: ALANINE AMINOTRANSFERASE 29 U/L (12-78); ALBUMIN 3.6 g/dL (3.4-5.0); ANION GAP 3 mmol/L (5-15); CALCIUM 9.4 mg/dL (8.5-10.1); CHLORIDE 109 mmol/L (98-107)
[2020-07-25 12:49] LABS: ALKALINE PHOSPHATASE 81 U/L (45-117); BILIRUBIN,TOTAL 0.4 mg/dL (0.2-1.0); CREATININE 1.28 mg/dL (0.55-1.02); TOTAL PROTEIN 7.3 g/dL (6.4-8.2)
== END 2020-07-25 23:59 | disposition home or self-care (01) ==
LOC: STAR 11:17
PROVIDERS: ATTEND Surgery
DX: Z01.818 Encounter for other preprocedural examination (principal); K43.5 Parastomal hernia without obstruction or gangrene; I48.91 Unspecified atrial fibrillation; R94.31 Abnormal electrocardiogram [ECG] [EKG]
CPT/HCPCS: 36415; 80053; 93005

== ENCOUNTER 2020-07-31 06:48 | Day surgery (SDC) | payer MEDICARE, OTHER ==
[~2020-07-31] VITALS: Ht 170.2 cm; Wt 70.0 kg
[~2020-07-31 06:48] MED LIST changes: +CELE100C PO; +METO-99 PO; +VIT1CAPS42 PO; +WARF4TAB65 PO
[2020-07-31] MEDS ORDERED: BUPIVACAINE/PF 0.5% ONE (07:16)
[2020-07-31] MEDS ORDERED: CHLORHEXIDINE 15 ML UDC PO ONE ×2 (07:30→09:00)
[2020-07-31] MEDS ORDERED: LACTATED RINGERS 1,000 ML IV SCH ×2 (07:30→09:00)
[2020-07-31 07:50] VITALS: BP 128/81
[2020-07-31] MEDS ORDERED: ENOX80SY5 SQ (07:54)
[2020-07-31] MEDS ORDERED: FENTANYL PF 250 MCG/5ML ONE (08:27)
[2020-07-31] MEDS ORDERED: NEOSTIGMINE 1 MG/ML, 10ML ONE (08:28)
[2020-07-31] MEDS ORDERED: ONDANSETRON 2MG/ML, 2ML ONE (08:28)
[2020-07-31] MEDS ORDERED: ROCURONIUM 10MG/ML,5ML ONE (08:28)
[2020-07-31] MEDS ORDERED: PROPOFOL 10 MG/ML, 20ML ONE (08:28)
[2020-07-31] MEDS ORDERED: GLYCOPYRROLATE 0.2MG/1ML, 5ML ONE (08:28)
[2020-07-31] MEDS ORDERED: DEXAMETHASONE 4 MG/ML, 1ML ONE (08:28)
[2020-07-31 08:32] LABS: INTERNATIONAL NORMALIZED RATIO 1.11 (0.93-1.1); PROTHROMBIN TIME 11.9 Seconds (9.6-11.5)
[2020-07-31] MEDS ORDERED: PHENYLEPHRINE 10 MG/ML ONE (08:50)
[2020-07-31] MEDS ORDERED: CEFOTETAN 2 GM ONE (08:50)
[2020-07-31] MEDS ORDERED: MEPERIDINE/PF 25MG/0.5ML IVPush PRN (09:00)
[2020-07-31] MEDS ORDERED: PROMETHAZINE 25 MG/ML, 1ML IVPush PRN (09:00)
[2020-07-31] MEDS ORDERED: LABETALOL 5MG/ML, 20ML IV PRN (09:00)
[2020-07-31] MEDS ORDERED: morphine SULFATE 10 MG/ML, 1ML IVPush PRN (09:00)
[2020-07-31] MEDS ORDERED: HALOPERIDOL 5 MG/ML IV PRN (09:00)
[2020-07-31] MEDS ORDERED: hydrALAzine 20 MG/ML, 1ML IV PRN (09:00)
[2020-07-31] MEDS ORDERED: HYDROmorphone 1 MG/ML, 1ML INJ IVPush PRN (09:00)
[2020-07-31] MEDS ORDERED: FENTANYL PF 100 MCG/2ML ONE (11:19)
[2020-07-31] MEDS ORDERED: OXYcodone 5 MG/5 ML ORAL.SOL UDC ONE (11:20)
[2020-07-31] MEDS: FENTANYL PF 100 MCG/2ML IV PRN ×2 (11:23→11:35)
[2020-07-31] MEDS ORDERED: OXYC1TAB14 PO (11:25)
[2020-07-31] MEDS: OXYcodone 5 MG/5 ML ORAL.SOL UDC PO PRN ×2 (11:36→17:20)
[2020-07-31] MEDS ORDERED: HYDROmorphone 1 MG/ML, 1ML INJ ONE (11:44)
== END 2020-07-31 17:45 | disposition home or self-care (01) ==
LOC: OUT 06:48
PROVIDERS: ATTEND Surgery
DX: K43.3 Parastomal hernia with obstruction, without gangrene (principal); I48.91 Unspecified atrial fibrillation; E78.5 Hyperlipidemia, unspecified; E03.9 Hypothyroidism, unspecified; Z20.822 Contact with and (suspected) exposure to COVID-19; Z79.01 Long term (current) use of anticoagulants; Z79.899 Other long term (current) drug therapy; Z88.0 Allergy status to penicillin; Z88.2 Allergy status to sulfonamides; Z93.6 Other artificial openings of urinary tract status
CPT/HCPCS: 36415; 49655; 85610; 85730; C1781; J1100; J1170; J2370; J2405; J2704; J2710; J3010; J7120; U0003

== ENCOUNTER 2020-10-25 09:36 | Outpatient (CLI) | payer MEDICARE, OTHER ==
[~2020-10-25 09:36] MED LIST changes: +ENOX80SY5 SQ; +OXYC1TAB14 PO
== END 2020-10-25 23:59 | disposition home or self-care (01) ==
LOC: CFH 09:36
DX: Z13.820 Encounter for screening for osteoporosis (principal); N95.9 Unspecified menopausal and perimenopausal disorder
CPT/HCPCS: 77080